=== PATIENT | female | born 1995 | race Two or more races ===

== ENCOUNTER 2020-09-27 12:35 | Outpatient (CLI) | payer SELFPAY ==
[~2020-09-27] VITALS: Ht 160 cm; Wt 127.3 kg
[2020-09-27 13:30] LABS: MICROSCOPIC INDICATED
[2020-09-27 13:33] LABS: AMPHETAMINE SCREEN, URINE Negative (Negative); BARBITURATE SCREEN, URINE Negative (Negative); BENZODIAZEPINE SCREEN, URINE Negative (Negative); CANNABINOID SCREEN, URINE Negative (Negative); COCAINE SCREEN, URINE Negative (Negative); METHADONE SCREEN, URINE Negative (Negative); OPIATE SCREEN, URINE Negative (Negative)
[2020-09-27 13:45] VITALS: BP 126/69
== END 2020-09-27 16:12 | disposition home or self-care (01) ==
LOC: LDOP 12:35
PROVIDERS: ATTEND Obstetrics & Gynecology
DX: O26.893 Other specified pregnancy related conditions, third trimester (principal); R10.9 Unspecified abdominal pain; Z3A.32 32 weeks gestation of pregnancy
CPT/HCPCS: 59025; 80307; 81001; 84112; 87086